=== PATIENT | female | born 1975 | race African-American/Black ===

== ENCOUNTER 2017-01-12 14:49 | Emergency (ER) | payer SELFPAY ==
[2017-01-12 15:01] VITALS: BP 137/96; BMI 38.7
[2017-01-12] MEDS ORDERED: NORFLEX INJ IM ONE (15:33)
[2017-01-12] MEDS ORDERED: TORADOL 60 MG VIAL IM ONE (15:33)
--- NOTE | 2017-01-12 15:46 | DR.GENAD ---
HPI - PCP Primary Care Physician: Alexa MENDEZ - HPI Comment HPI Comment: PATIENT DENIEAS TRAUMA. HISTORY ARTHRITIS. NO FEVER. NO URI SYMTOMS. - Complaint/Symptoms Chief Complaint Doctors Comments: LEFT ARM PAIN TIMES ONE WEEK. WORSE TODAY. Chief Complaint:: "MY LEFT ARM HAS BEEN HURTING FOR A WEEK." Self Treatment fo Chief Complaint: NORCO - Nurses notes reviewed Nurses Notes Review: Yes - Source History Provided: Patient - Mode of Arrival Mode of Arrival: Ambulatory - Timing Onset of Chief Complaint: 01/05/17 Came on: Suddenly - Duration Duration: Constant Duration: Days - Severity Severity: Moderate PMH - PMH Past Medical History: Yes Past Medical History: Hypertension Past Medical History Comment: CHRONIC BACK PAIN Past Surgical History: Yes Surgical History: [employer] Surgery - Family History History of Family Medical Conditions: Yes Family Medical History: Diabetes Mellitus, Hypertension - Social History Does patient currently use any type of tobacco product: Yes Have you used tobacco products in the last 12 months: Yes Type of Tobacco Use: Cigarettes How many years tobacco product used: 20 Does any household member use tobacco: Yes Alcohol Use: None Do you use any recreational Drugs:: No Lives With: Family Lives Where: Home - infectious screening In the last 2 months have you had wt loss of >10#?: NO Have you had fever, night sweats or hemotysis?: No Have you traveled outside the country in the last 6 months?: No ROS - Review of Systems Constitutional: No Symptoms Reported Eyes: No Symptoms Reported ENTM: No Symptoms Reported Respiratoy: No Symptoms Reported Cardiovascular: No Symptoms Reported Gastrointestinal/Abdominal: No Symptoms Reported Genitourinary: No Symptoms Reported Neurological: No Symptoms Reported Musculoskeletal: Left, Arm Integumentary: No Symptoms Reported Hematologic/Lymphatic: No Symptoms Reported Endocrine: No Symptoms Reported All Other Systems: Reviewed and Negative PE - Vital Signs Vitals: Temperature 98.5 F Pulse Rate 68 Respiratory Rate 20 Blood Pressure 137/96 O2 Sat by Pulse Oximetry 98 - General Limitations: No Limitations General Appearance: Alert - Head Head Exam: Normal Inspection - Eyes Eye exam: Normal Appearance - ENT ENT Exam: Normal External Ear Exam External Ear Exam: Normal External Inspection TM/Canal Exam: Bilateral Normal Nose Exam: Normal Nose Exam Mouth Exam: Normal Inspection Throat Exam: Normal Inspection - Neck Neck Exam: Normal Inspection - Chest Chest Inspection: Symmetric Chest Wall Rise - Respiratory Respiratory Exam: Normal Lung Sounds Bilat Respiratory Exam: Bilateral Clear to Auscultation - Cardiovascular Cardiovascular Exam: Regular Rate, Normal Rhythm, Normal Heart Sounds - Abdominal Exam Abdominal Exam: Normal Bowel Sounds, Soft. negative: Tenderness - Extremities Extremities Exam: negative: Full ROM (DECREASE ROM LUE.) - Back Back Exam: Normal Inspection - Neurologic Neurological Exam: Alert, Oriented X3, CN II-XII Intact - Psychiatric Psychiatric Exam: Normal Affect, Normal Mood - Skin Skin Exam: Normal Color MDM - Differential Diagnosis Differential Diagnosis: ARTHRTIS, VT, MUSCLE STRAIN Course - Treatment Treatment: SEE ORDERS - Education/Counseling Education/Counseling: Patient, Education Educated On: Treatment, Diagnosis, Needs for Follow Up ROR - Labs Reviewed Laboratory Results Reviewed?: Yes Result Diagrams: 01/12/17 15:46 01/12/17 15:46 Laboratory: WBC 4.8 X10^3/uL (3.6-10.0) 01/12/17 15:46 RBC 4.74 X10^6/uL (3.5-5.4) 01/12/17 15:46 Hgb 11.4 g/dL (12.0-16.0) L 01/12/17 15:46 Hct 35.9 % (36.0-47.0) L 01/12/17 15:46 MCV 75.8 fL (80.0-100.0) L 01/12/17 15:46 MCH 23.9 pg (27.0-34.0) L 01/12/17 15:46 MCHC 31.6 g/dL (33.0-35.0) L 01/12/17 15:46 RDW 16.5 % (11.6-16.5) 01/12/17 15:46 Plt Count 144 X10^3/uL (150.0-450.0) L 01/12/17 15:46 Plt Count Comment Adequate (ADEQUATE) 01/12/17 15:46 MPV 9.3 fL (7.4-11.0) 01/12/17 15:46 Neut % 38.3 % (42.0-75.0) L 01/12/17 15:46 Lymph % 52.5 % (21.0-51.0) H 01/12/17 15:46 [place] % 5.1 % (0.0-13.0) 01/12/17 15:46 Eos % 2.6 % (0.9-2.9) 01/12/17 15:46 Baso % 1.5 % (0.2-1.0) H 01/12/17 15:46 Neut # 1.8 x10^3/uL (2.2-4.8) L 01/12/17 15:46 Lymph # 2.5 X10^3/uL (1.3-2.9) 01/12/17 15:46 [place] # 0.2 x10^3/uL (0.3-0.8) L 01/12/17 15:46 Eos # 0.1 x10^3/uL (0.0-0.2) 01/12/17 15:46 Baso # 0.1 X10^3/uL (0.0-0.1) 01/12/17 15:46 Absolute Nucleated RBC 0.1 /100WBC 01/12/17 15:46 Total Counted 100 01/12/17 15:46 Neutrophils % (Manual) 46 % (39-76) 01/12/17 15:46 Lymphocytes % (Manual) 52 % (13-43) H 01/12/17 15:46 Monocytes % (Manual) 1 % (4-9) L 01/12/17 15:46 Eosinophils % (Manual) 1 % (0-6) 01/12/17 15:46 Plt Morphology Comment Normal (NORMAL) 01/12/17 15:46 RBC Morphology Normal (NORMAL) 01/12/17 15:46 Sodium 136 mmol/L (136-145) 01/12/17 15:46 Corrected Sodium TNP 01/12/17 15:46 Potassium 3.7 mmol/L (3.5-5.1) 01/12/17 15:46 Chloride 106 mmol/L (98-107) 01/12/17 15:46 Carbon Dioxide 22.1 mmol/L (21-32) 01/12/17 15:46 BUN 11 mg/dL (7-18) 01/12/17 15:46 Creatinine 0.84 mg/dL (0.55-1.02) 01/12/17 15:46 Est GFR (MDRD) Af Amer > 60 (>60) 01/12/17 15:46 Est GFR (MDRD) Non-Af > 60 (>60) 01/12/17 15:46 Glucose 75 mg/dL (65-99) 01/12/17 15:46 Calcium 9.1 mg/dL (8.5-10.1) 01/12/17 15:46 Corrected Calcium TNP 01/12/17 15:46 Total Bilirubin 0.20 mg/dL (0.2-1.0) 01/12/17 15:46 AST 18 Units/L (15-37) 01/12/17 15:46 ALT 16 Units/L (12-78) 01/12/17 15:46 Alkaline Phosphatase 54 Units/L (46-116) 01/12/17 15:46 Creatine Kinase 200 Units/L (26-192) H 01/12/17 15:46 CK-MB (CK-2) 2.0 ng/mL (0-4.0) 01/12/17 15:46 CK/CKMB % Calc 1.0 % (<4) 01/12/17 15:46 Troponin I < 0.02 ng/mL (0-1.5) 01/12/17 15:46 Total Protein 7.4 g/dL (6.4-8.2) 01/12/17 15:46 Albumin 3.4 g/dL (3.4-5.0) 01/12/17 15:46 Globulin 4.0 g/dL (2.5-4.5) 01/12/17 15:46 Albumin/Globulin Ratio 0.9 Ratio (1.1-2.1) L 01/12/17 15:46 - EKG Rhythm: NSR (EKG NOTED) - Diagnosis Discharge Problem: Left arm pain, Musculoskeletal pain, Arthritis - Discharge Plan Disposition: HOME, SELF-CARE Condition: Good Prescriptions: Cyclobenzaprine HCl [FLEXERIL 10 MG *] 10 mg PO TID #20 tab Ibuprofen [MOTRIN TAB 800 MG *] 800 mg PO Q8H PRN #20 tab PRN Reason: Pain/Inflammation - Follow ups/Referrals Follow ups/Referrals: ENIO MENDEZ [Primary Care Provider] - 3 days - Instructions Instructions: Musculoskeletal Pain, Chest Pain Observation Additional Instructions: RETURN TO ED IF WORSE.
[2017-01-12 15:54] LABS: BASOPHILS # (AUTO) 0.1 X10^3/uL (0.0-0.1); BASOPHILS % (AUTO) 1.5 % (0.2-1.0); EOSINOPHILS # (AUTO) 0.1 x10^3/uL (0.0-0.2); EOSINOPHILS % (AUTO) 2.6 % (0.9-2.9); HEMATOCRIT 35.9 % (36.0-47.0); HEMOGLOBIN 11.4 g/dL (12.0-16.0); LYMPHOCYTES # (AUTO) 2.5 X10^3/uL (1.3-2.9); LYMPHOCYTES % (AUTO) 52.5 % (21.0-51.0); MEAN CORPUSCULAR HEMOGLOBIN 23.9 pg (27.0-34.0); MEAN CORPUSCULAR HGB CONC 31.6 g/dL (33.0-35.0); MEAN CORPUSCULAR VOLUME 75.8 fL (80.0-100.0); MEAN PLATELET VOLUME 9.3 fL (7.4-11.0); MONOCYTES # (AUTO) 0.2 x10^3/uL (0.3-0.8); MONOCYTES % (AUTO) 5.1 % (0.0-13.0); NEUTROPHILS # (AUTO) 1.8 x10^3/uL (2.2-4.8); NEUTROPHILS % (AUTO) 38.3 % (42.0-75.0); PLATELET COUNT 144 X10^3/uL (150.0-450.0); RED BLOOD COUNT 4.74 X10^6/uL (3.5-5.4); RED CELL DISTRIBUTION WIDTH 16.5 % (11.6-16.5); WHITE BLOOD COUNT 4.8 X10^3/uL (3.6-10.0)
[2017-01-12 16:10] LABS: PLATELET MORPHOLOGY COMMENT NORMAL (NORMAL)
[2017-01-12 16:12] LABS: BLOOD UREA NITROGEN 11 mg/dL (7-18); CALCIUM 9.1 mg/dL (8.5-10.1); CARBON DIOXIDE 22.1 mmol/L (21-32); CHLORIDE 106 mmol/L (98-107); CREATININE 0.84 mg/dL (0.55-1.02); SODIUM 136 mmol/L (136-145); TROPONIN I < 0.02 ng/mL (0-1.5); eGFR BLACK RACES > 60 (>60); eGFR NON BLACK RACES > 60 (>60)
[2017-01-12] MEDS ORDERED: NORFLEX INJ ONE (16:16)
[2017-01-12] MEDS ORDERED: TORADOL 60 MG VIAL ONE (16:16)
[2017-01-12 16:17] LABS: ALANINE AMINOTRANSFERASE 16 Units/L (12-78); ALBUMIN 3.4 g/dL (3.4-5.0); ALKALINE PHOSPHATASE 54 Units/L (46-116); ASPARTATE AMINO TRANSFERASE 18 Units/L (15-37); CREATINE KINASE 200 Units/L (26-192); TOTAL PROTEIN 7.4 g/dL (6.4-8.2)
== END 2017-01-12 16:26 | disposition home or self-care (01) ==
LOC: ER 15:08
DX: M19.90 Unspecified osteoarthritis, unspecified site (principal); M79.622 Pain in left upper arm; M79.1 Myalgia
CPT/HCPCS: 36415; 80053; 82550; 82553; 84484; 85025; 93005; 93010; 96372; 99283; J1885; J2360